=== PATIENT | female | born 1990 | race Caucasian/White ===

== ENCOUNTER 2020-04-03 10:47 | Outpatient (CLI) | payer OTHER, SELFPAY ==
--- NOTE | 2020-04-03 11:03 | USCV_ITS ---
Jacinta Calix Age: 29 Gender: F : 1990 Exam Date: 04/03/2020 11:12 Ordering Phys: Johny Davis MD Technologist: Ronit Breaux Exam Location: [facility] [place] Indication: POST REDUCTION IN EF BP: / HR: 72 Rhythm: Sinus Technical Quality: Good MEASUREMENTS (Male / Female) Normal Values 2D ECHO LV Diastolic Diameter PLAX 4.4 cm 4.2 - 5.9 / 3.9 - 5.3 cm LV Systolic Diameter PLAX 3.2 cm LV Chamber Size 4.0 cm IVS Diastolic Thickness 1.2 cm 0.6 - 1.0 / 0.6 - 0.9 cm IVS Systolic Thickness 1.5 cm LVPW Diastolic Thickness 0.9 cm 0.6 - 1.0 / 0.6 - 0.9 cm LVPW Systolic Thickness 1.2 cm RV Chamber Size 2.4 cm LVOT Diameter 2.0 cm LV Ejection Fraction 2D Teich 55.7 % LV Ejection Fraction MOD 2C 69.8 % LV Ejection Fraction 2C AL 70.7 % LA Diameter 2.5 cm LA Width 2.4 cm LA Height 3.2 cm RA Width 2.7 cm RA Height 3.7 cm Aorta at Sinotubular Diameter 2.6 cm M-MODE LV Diastolic Diameter MM 4.7 cm 4.2 - 5.9 / 3.9 - 5.3 cm LV Systolic Diameter MM 3.1 cm LV Ejection Fraction MM Teich 62.9 % IVS Diastolic Thickness MM 0.7 cm 0.6 - 1.0 / 0.6 - 0.9 cm IVS Systolic Thickness MM 1.2 cm LVPW Diastolic Thickness MM 1.0 cm 0.6 - 1.0 / 0.6 - 0.9 cm LVPW Systolic Thickness MM 1.3 cm RV Diastolic Diameter MM 1.0 cm Aortic Annulus Diameter 3.2 cm LA Ao Ratio MM 0.8 MV E Point Septal Separation 0.6 cm DOPPLER AV Peak Velocity 141.0 cm/s LVOT Peak Velocity 90.0 cm/s AV Area Cont Eq vti 2.2 cm squared AV Area Cont Eq pk 2.0 cm squared MV Area PHT 6.7 cm squared Mitral E to A Ratio 1.5 MV E' Velocity 14.0 cm/s Mitral E to MV E' Ratio 7.5 Mitral E to LV E' Lateral Ratio 6.4 Mitral E to LV E' Septal Ratio 9.3 TR Peak Velocity 108.4 cm/s TR Peak Gradient 4.7 mmHg TR Mean Velocity 81.5 cm/s TR Mean Gradient 2.8 mmHg TR Velocity Time Integral 20.0 cm TV Peak E Velocity 75.0 cm/s Right Atrial Pressure 3.0 mmHg Pulmonary Artery Systolic Pressu 7.7 mmHg PV Peak Velocity 57.0 cm/s RV Acceleration Time 0.1 s RV Ejection Time 0.3 s RV AcT/ET 0.4 FINDINGS Left Ventricle Normal left ventricular size, systolic function and wall thickness, with no regional wall motion abnormalities. Normal left ventricular wall thickness. Normal diastolic filling pattern. Left ventricular ejection fraction is estimated at 55 %. Right Ventricle The right ventricle is normal in size and function. Right Atrium The right atrium is normal in size. Left Atrium The left atrium is normal in size. Mitral Valve Structurally normal mitral valve without significant stenosis or prolapse. There is no mitral regurgitation. Aortic Valve Structurally normal aortic valve without significant sclerosis or stenosis. There is no aortic regurgitation. Tricuspid Valve Structurally normal tricuspid valve without significant stenosis or regurgitation. Pulmonary artery systolic pressure is normal. Pulmonic Valve Structurally normal pulmonic valve without significant stenosis. There is no pulmonic regurgitation. Pericardium Normal pericardium without effusion. Aorta Normal ascending aorta dimension. CONCLUSIONS Normal transthoracic echocardiogram. When compared to the previous echo was done in August and September of last year there has been an improvement in the ejection fraction from 40% to 55%. Dr. Des Duffy MD (Electronically Signed) Final Date: 03 April 2020 15:44 S
== END 2020-04-03 10:48 | disposition home or self-care (01) ==
LOC: RAD 10:50
PROVIDERS: Family Provider Family Medicine; Visit Provider Family Medicine
DX: I50.9 Heart failure, unspecified (principal)
CPT/HCPCS: 93306

== ENCOUNTER 2021-11-27 11:19 | Day surgery (SDC) | payer BC, SELFPAY ==
[2021-11-26 11:52] VITALS: BMI 21.7
[2021-11-26 12:03] LABS: OR HCG Qualitative Urine Negative (Negative)
[2021-11-26 12:12] LABS: Basophils % 0.5 %; Eosinophils # 0.3 10^3/uL (0.0-0.8); Eosinophils % 4.3 %; Hematocrit 39.2 % (37.0-47.0); Hemoglobin 12.9 g/dL (11.5-15.3); Lymphocytes # 1.9 10^3/uL (0.8-4.8); Lymphocytes % 24.4 %; Mean Corpuscular HGB Conc 32.9 g/dL (30.0-36.0); Mean Corpuscular Hemoglobin 31.5 pg (28.0-34.0); Mean Corpuscular Volume 95.6 fl (81-99); Mean Platelet Volume 8.8 fL (7.4-10.4); Monocytes # 0.4 10^3/uL (0.2-0.9); Monocytes % 5.1 %; Neutrophils # 5.16 10^3/uL (1.8-7.7); Neutrophils % 65.4 %; Nucleated Red Blood Cells % 0 %; Platelet Count 240 10^3/cmm (130-400); Red Cell Distribution Width 12.8 % (12.1-15.1); White Blood Count 7.9 10^3/uL (4.0-10.0)
[2021-11-26 12:27] LABS: Add Urine Microscopic? YES; Bilirubin Urine Neg (Negative); Blood Urine 2+ (Negative); Glucose Urine UA Norm (Normal); Ketones Urine Negative (Negative); Leukocyte Esterase Urine Negative (Negative); Nitrate Urine Negative (Negative); Protein Urine Neg (Negative); Specific Gravity, Urine 1.005 (1.005-1.030); Urine Appearance Clear (CLEAR); Urine Color Yellow (Yellow); Urobilinogen Urine Neg (Negative); pH Urine 7 (5-7)
[2021-11-26 12:37] LABS: RBC Urine 0-4 /hpf (0-2); WBC Urine RARE /hpf (0-5)
[2021-11-26 12:38] LABS: Add Urine Culture? No
[2021-11-26 12:51] LABS: Alanine Aminotransferase 11 U/L (0-33); Albumin Level 4.8 g/dL (3.5-5.2); Alkaline Phosphatase 60 IU/L (35-105); Anion Gap 15.6 (5-19); Aspartate Amino Transferase 12 U/L (0-32); Blood Urea Nitrogen 12 mg/dL (6-20); Calcium 9.3 mg/dL (8.5-10.5); Carbon Dioxide 24 mmol/L (22-29); Chloride 102 mmol/L (98-107); Creatinine Clr Calc Pharmacy 115.2909; Globulin 2.5 g/dL (1.3-4.6); Glomerular Filtration Rate 116.6 mL/min (90-130); Glucose 80 mg/dL (65-115); Osmolality Calculated 285 mOsm/kg (285-295); Potassium 3.6 mmol/L (3.5-5.1); Sodium 138 mmol/L (136-145); Total Bilirubin 0.5 mg/dL (0.15-1.2); Total Protein 7.3 g/dL (6.6-8.7)
[2021-11-26 13:34] LABS: Squamous Epithelial Cell Urine 0-4 /hpf (0-5)
--- NOTE | 2021-11-26 13:44 | P.ANESASSM_ITS ---
Pre-Anesthetic Assessment Height/Weight: Height 1.6 m Weight 55.792 kg Operation Date: 11/27/21 12:55 Proposed Procedures p Laparoscopic Salpingectomy 26165/z30.2(Bilateral) - Good Villalobos MD Was Beta Alaina taken within 24 hours: N/A Was Clonidine taken within 24 hours: N/A Social Tobacco (Vapes) and No alcohol Exam alert, oriented x 3, clear to auscultation bilaterally and regular rate & rhythm Airway Submandibular: within normal limits Cervical ROM: within normal limits Mallampati: Class I Dentition: full History/ROS No significant history except as noted and No significant complaints Pulmonary None reported CV/HEM None reported METS > 4 None reported Hepatic None reported Metabolic None reported Musc/skel None reported Neuropsych None reported Anesthetic Plan ASA status: 2 (31 year old daily vape users) Anesthesia: Anesthesia Evaluation and General Other: We discussed risk and benefits of general anesthesia including PONV, sore throat (sometimes severe), corneal abrasion, positioning and peripheral nerve injuries, life threatening allergic reaction, post operative ICU admission requiring prolonged intubation, stroke, heart attack, , and rare incidences of recall. Patient consents to proceed with general anesthesia. Risk of > 500 ml blood loss (7ml/kg in children): No Medications/Allergies Home Medications Medication Instructions Recorded Confirmed Last Taken Type buspirone 5 mg tablet 5 mg PO BID 10/08/21 11/26/21 Unknown History fluoxetine 40 mg capsule (Prozac) 40 mg PO DAILY 10/08/21 11/26/21 Unknown History norethindrone (contraceptive) 0.35 0.35 mg PO DAILY 10/08/21 11/26/21 Unknown History mg tablet Allergies Allergy/AdvReac Type Severity Reaction Status Date / Time No Known Allergies Allergy Verified 11/26/21 11:49 [facility] Anesthesia Medical History Request for sterilization Surgical History No history of previous surgery Family History Mother Hyperlipidemia Hypertension Family/Other Colon cancer maternal aunt, 40's Denies family history of Ovarian cancer Diabetes Clotting disorder Heart disease Breast cancer Anesthesia complication Bleeding disorder Uterine cancer Thyroid condition Stroke Female Reproductive History Date of last menstrual period: 11/25/21 Data Anesthesia : 11/26/21 11:57 11/26/21 11:57 Short CBC 11/26/21 Range/Units 11:57 WBC 7.9 (4.0-10.0) 10^3/uL Hgb 12.9 (11.5-15.3) g/dL Hct 39.2 (37.0-47.0) % MCV 95.6 (81-99) fl Plt Count 240 (130-400) 10^3/cmm Neut % (Auto) 65.4 % Neut # (Auto) 5.16 (1.8-7.7) 10^3/uL BMP 11/26/21 11:57 Sodium 138 Potassium 3.6 Chloride 102 Carbon Dioxide 24 BUN 12 Creatinine 0.6 Glucose 80 Calcium 9.3 Liver Function 11/26/21 Range/Units 11:57 Total Bilirubin 0.5 (0.15-1.2) mg/dL AST 12 (0-32) U/L ALT 11 (0-33) U/L Alkaline Phosphatase 60 (35-105) IU/L Albumin 4.8 (3.5-5.2) g/dL Urine 11/26/21 Range/Units 11:50 Urine Color Yellow (Yellow) Urine Appearance Clear (CLEAR) Urine pH 7 (5-7) Ur Specific [place] 1.005 (1.005-1.030) Urine Protein Neg (Negative) Urine Glucose (UA) Norm (Normal) Urine Ketones Negative (Negative) Urine Nitrate Negative (Negative) Urine Bilirubin Neg (Negative) Ur Leukocyte Esterase Negative (Negative) Urine RBC 0-4 H (0-2) /hpf Urine WBC Rare (0-5) /hpf Cardiac Studies: Echocardiogram Ultrasound 04/03/20
[2021-11-27] VITALS (7 sets, daily range): BP systolic 132–150; BP diastolic 85–101; PULSE 60–88; RESP 14–18; TEMP 36.2–37.4; O2SAT 98–100
[2021-11-27] MEDS: sodium chloride 0.9% 500 ML IV (11:52)
[2021-11-27] MEDS: sodium chloride 0.9% 1,000 ML 30 ML IV (11:52)
[2021-11-27] MEDS: scopolamine 1.5 Patch 1 PATCH TRANSDERMA (12:07)
--- NOTE | 2021-11-27 12:41 | P.ANESUD_ITS ---
Pre-Anesthetic Update Pre-Anesthetic Assessment: Date of Surgery/Procedure: 11/27/21 Preop Dhara gnosis: Desire permanent sterilization Proposed Procedure: Operation Date: 11/27/21 12:55 Proposed Procedures p Laparoscopic Salpingectomy 72186/z30.2(Bilateral) - Good Villalobos MD Any changes to Pre-Anesthetic Assessment?: No Last Intake: Intake Last Liquid Date 11/26/21 Last Liquid Time 21:00 Last Solid Date 11/26/21 Last Solid Time 21:00 Labs Last 48hrs: Short CBC 11/26/21 Range/Units 11:57 WBC 7.9 (4.0-10.0) 10^3/ uL Hgb 12.9 (11.5-15.3) g/dL Hct 39.2 (37.0-47.0) % MCV 95.6 (81-99) fl Plt Count 240 (130-400) 10^3/c mm Neut % (Auto) 65.4 % Neut # (Auto) 5.16 (1.8-7.7) 10^3/u L BMP 11/26/21 11:57 Sodium 138 Potassium 3.6 Chloride 102 Carbon Dioxide 24 BUN 12 Creatinine 0.6 Glucose 80 Calcium 9.3 Liver Function 11/26/21 Range/Units 11:57 Total Bilirubin 0.5 (0.15-1.2) mg/dL AST 12 (0-32) U/L ALT 11 (0-33) U/L Alkaline Phosphata se 60 (35-105) IU/L Albumin 4.8 (3.5-5.2) g/dL Urine 11/26/21 Range/Units 11:50 Urine Color Yellow (Yellow) Urine Appearance Clear (CLEAR) Urine pH 7 (5-7) Ur Specific Gravit y 1.005 (1.005-1.030) Urine Protein Neg (Negative) Urine Glucose (UA) Norm (Normal) Urine Ketones Negative (Negative) Urine Nitrate Negative (Negative) Urine Bilirubin Neg (Negative) Ur Leukocyte Itzel ase Negative (Negative) Urine RBC 0-4 H (0-2) /hpf Urine WBC Rare (0-5) /hpf Blood Bank 11/26/21 11:57 Blood Type O Positive Rho(D) Type Positive Antibody Screen Negative Vitals: Temperature 99.3 F 11/27/21 11:45 Pulse Rate 88 11/27/21 11:45 Respiratory Rate 18 11/27/21 11:45 Blood Pressure 146/86 11/27/21 11:45 Blood Pressure Consuelo n 106 11/27/21 11:45 Pulse Oximetry 99 11/27/21 11:45 Oxygen Delivery Me thod 11/27/21 12:03 Exam: Pre-Anes Outpt Exam: alert, oriented x 3, clear to auscultation bilaterally and regular rate & rhythm Cardiac Studies: Echocardiogram Ultrasound 04/03/20
--- NOTE | 2021-11-27 12:42 | W.PM.OPSUD ---
Surgery/Procedure H&P Update DATE OF PROCEDURE: November 27, 2021 DATE H&P PERFORMED: 11/25/21 H&P UPDATE INFORMATION: I have reviewed H&P completed within last 30 days and No changes to prior documentation PREOP DIAGNOSIS: Desire permanent sterilization PLANNED PROCEDURE: Operation Date: 11/27/21 12:55 Proposed Procedures p Laparoscopic Salpingectomy 87524/z30.2(Bilateral) - Good Villalobos MD
--- NOTE | 2021-11-27 14:11 | ANES.PAUD2 ---
Pre-Anesthetic Update Pre-Anesthetic Assessment: Date of Surgery/Procedure: 11/27/21 Preop Diagnosis: Desire permanent sterilization Proposed Procedure: Operation Date: 11/27/21 12:55 Proposed Procedures p Laparoscopic Salpingectomy 43808/z30.2(Bilateral) - Good Villalobos MD Any changes to Pre-Anesthetic Assessment?: No Last Intake: Intake Last Liquid Date 11/26/21 Last Liquid Time 21:00 Last Solid Date 11/26/21 Last Solid Time 21:00 Labs Last 48hrs: Short CBC 11/26/21 Range/Units 11:57 WBC 7.9 (4.0-10.0) 10^3/ uL Hgb 12.9 (11.5-15.3) g/dL Hct 39.2 (37.0-47.0) % MCV 95.6 (81-99) fl Plt Count 240 (130-400) 10^3/c mm Neut % (Auto) 65.4 % Neut # (Auto) 5.16 (1.8-7.7) 10^3/u L BMP 11/26/21 11:57 Sodium 138 Potassium 3.6 Chloride 102 Carbon Dioxide 24 BUN 12 Creatinine 0.6 Glucose 80 Calcium 9.3 Liver Function 11/26/21 Range/Units 11:57 Total Bilirubin 0.5 (0.15-1.2) mg/dL AST 12 (0-32) U/L ALT 11 (0-33) U/L Alkaline Phosphata se 60 (35-105) IU/L Albumin 4.8 (3.5-5.2) g/dL Urine 11/26/21 Range/Units 11:50 Urine Color Yellow (Yellow) Urine Appearance Clear (CLEAR) Urine pH 7 (5-7) Ur Specific Gravit y 1.005 (1.005-1.030) Urine Protein Neg (Negative) Urine Glucose (UA) Norm (Normal) Urine Ketones Negative (Negative) Urine Nitrate Negative (Negative) Urine Bilirubin Neg (Negative) Ur Leukocyte Itzel ase Negative (Negative) Urine RBC 0-4 H (0-2) /hpf Urine WBC Rare (0-5) /hpf Blood Bank 11/26/21 11:57 Blood Type O Positive Rho(D) Type Positive Antibody Screen Negative Vitals: Temperature 99.3 F 11/27/21 11:45 Pulse Rate 88 11/27/21 11:45 Respiratory Rate 18 02/02/22 11:45 Blood Pressure 146/86 11/27/21 11:45 Blood Pressure Consuelo n 106 11/27/21 11:45 Pulse Oximetry 99 11/27/21 11:45 Oxygen Delivery Me thod 11/27/21 12:03 Exam: Pre-Anes Outpt Exam: alert, oriented x 3, clear to auscultation bilaterally and regular rate & rhythm Cardiac Studies: Echocardiogram Ultrasound 04/03/20
--- NOTE | 2021-11-27 16:11 | PM.OP ---
Operative Report Date of procedure: November 27, 2021 Pre-op diagnosis: Preop Diagnosis Desire permanent sterilization Post-op diagnosis: same mild endometriosis Procedure done: Laparoscopic bilateral salpingectomy. Fulguration of endometriosis lesions. Specimens removed/disposition: Left and right fallopian tubes Pathology: Left and right fallopian tube Surgeon: Good Villalobos MD Estimated blood loss: 5 IV fluids: 500 Urine output: 25 Procedure: After informed consent, the patient was taken to the operating room where general anesthesia was administered. She was placed in the dorsal lithotomy position and prepped and draped in sterile fashion. Pre-Procedure Time-Out verifying the correct patient identity, correct procedure verified with consent, correct site and side, correct patient position, availability of correct implants and any special equipment or requirements was performed and acknowledge by the OR team. The patient was examined under anesthesia and found to have a normal uterus with normal adnexa. A weighted speculum was placed in the vagina, and the anterior lip of cervix was grasped with the single toothed tenaculum. A uterine manipulator was advanced into the endocervical canal and uterus. The tenaculum was removed after uterine manipulator was secured. The speculum was removed from the vagina. An intraumbilical incision was made with a scalpel. While tenting up on the abdomen, a Verres needle was admitted into the intra-abdominal cavity. A saline drop test was performed and noted to be within normal limits. Pneumoperitoneum was attained with 4 liters of carbon dioxide. The Verres needle was removed. A 5 mm Opitc view trocar and sleeve were admitted into the abdomen and laparoscopic confirmation of location was achieved. A second incision was made 3 cm above the symphysis pubis, and a 5 mm trocar sleeves were admitted into the abdomen under direct laparoscopic visualization without complication. A survey revealed normal abdominal anatomy. A 5 mm blunt probe was advanced through the second trocar sleeve, and light manipulation of ovaries and uterus to assess the posterior aspects was performed. The pelvic survey shows normal uterus, left and right adnexa with the exception of mild endometriosis in cul-de-sac. The visible identified lesions were grasped with the Voyant device and 4 small lesions fulgurated the left ovary was noted with a follicular cyst. The string adhesion was fulgurated and transected with good hemostasis with the Voyant. The patient was placed into Trendelenburg position. The fallopian tubes were inspected bilaterally and the fimbriated ends of the fallopian tubes were visualized bilaterally. Attention was then directed to the right side. The fallopian tube and mesosalpinx were grasped and the underlying mesosalpinx was cauterized and cut using the Voyant device. Serial cauterization and cutting was used to separate the fallopian tube from the underlying mesosalpinx until it could be amputated cutting it approximated 2 cm from the cornua. Attention was then turned to the contralateral fallopian tube, which was removed in similar fashion. Both specimens were removed through the trocar and sent to pathology. The instruments were removed. The suprapubic trocar port was removed under direct visualization insuring good hemostasis. The carbon dioxide was allowed to escape from the abdomen. The intraumbilical trocar sleeve was withdrawn under visualization with laparoscope in the sleeve to insure hemostasis. The skin incisions were closed with 3-O Monocryl subcuticular stich and Dermabond. The instruments were removed from the vagina, and excellent hemostasis was noted. The patient tolerated the procedure well, and sponge, lap and needle count were correct times two. The patient was taken to the recovery room in good condition.
[2021-11-27] MEDS: HYDROcodone-acetaminophen 5-325 mg Tablet 2 TAB PO (16:45)
[2021-11-27] MEDS: ibuprofen 800 mg tablet PO (16:45)
--- NOTE | 2021-11-27 20:39 | ANE.PACU2 ---
Inpatient post-anesthesia follow up: Airway intact: Yes Vital signs: Temperature 97.6 F Pulse Rate 69 Respiratory Rate 16 Blood Pressure 150/85 Pulse Oximetry 98 Oxygen Delivery Me thod Room Air Oxygen Flow Rate Fraction of Inspir ed Oxygen Hydration adequate: Yes Nausea and vomiting: No Pain level: 2 Mental status: Baseline
== END 2021-11-27 17:05 | disposition home or self-care (01) ==
PROVIDERS: PCP Family Medicine; Visit Provider Obstetrics & Gynecology
PROC: (CPT 58661; principal; 2021-11-27 12:45)
DX: Z30.2 Encounter for sterilization (principal); N80.3 Endometriosis of pelvic peritoneum; F17.290 Nicotine dependence, other tobacco product, uncomplicated; Z82.49 Family history of ischemic heart disease and other diseases of the circulatory system; Z80.0 Family history of malignant neoplasm of digestive organs
CPT/HCPCS: 58661; 80053; 81001; 84703; 85025; 86850; 86900; 88302; J0690; J1100; J1200; J1885; J2250; J2405; J2704; J3010; J3490; J7030; J7040

== ENCOUNTER → 2024-11-15 08:54 | Outpatient (BNVA) | payer MEDICAID, SELFPAY | PROVIDERS: PCP Family Medicine; Referring Provider Family Medicine; Visit Provider Dermatology | DX: C44.319 Basal cell carcinoma of skin of other parts of face (principal) | CPT/HCPCS: 13132; 17311 ==

== ENCOUNTER → 2024-11-24 11:10 | Outpatient (BNVA) | payer MEDICAID, SELFPAY | PROVIDERS: PCP Family Medicine; Visit Provider Dermatology | DX: L81.4 Other melanin hyperpigmentation (principal); D22.5 Melanocytic nevi of trunk; D22.62 Melanocytic nevi of left upper limb, including shoulder; D22.61 Melanocytic nevi of right upper limb, including shoulder; D22.39 Melanocytic nevi of other parts of face; Z08 Encounter for follow-up examination after completed treatment for malignant neoplasm; Z85.828 Personal history of other malignant neoplasm of skin; D48.5 Neoplasm of uncertain behavior of skin | CPT/HCPCS: 11102; 99213 ==